=== PATIENT | female | born 1935 | race Hispanic/Latino ===

== ENCOUNTER 2017-11-04 17:41 | Emergency (ER) | payer MEDICARE, OTHER | END 2017-11-04 21:00 | disposition left against medical advice (07) | LOC: ED 17:41 | DX: M25.512 Pain in left shoulder (principal); Z53.21 Procedure and treatment not carried out due to patient leaving prior to being seen by health care provider ==

== ENCOUNTER 2017-11-05 09:38 | Outpatient (CLI) | payer MEDICARE, OTHER ==
[2017-11-05 10:35] LABS: Blood Urea Nitrogen 16 mg/dL (7-17)
--- NOTE | 2017-11-05 11:40 | Cat Scan Report ---
CTA CHEST: HISTORY: Chest pain on breathing, pleuritic chest pain. COMPARISON: 02/16/15. TECHNIQUE: Helical CT in 1.25mm intervals following IV contrast. Pulmonary embolus protocol. Sagittal and coronal reformatted images. Rotational MIP images. FINDINGS: Contrast bolus is satisfactory. No pulmonary embolus is identified. Thyroid gland: Normal. Tracheobronchial tree: Normal. Esophagus: The esophagus is within normal limits. A small hiatal hernia is noted. Heart: Normal. Pericardium: Normal. Mediastinum: Mild atherosclerotic calcifications and aortic arch are stable. No dissection or aneurysm. No mediastinal mass or adenopathy. Lung Bassett: Mild linear scarring or atelectasis is identified in the lower lung zones. No evidence for pneumonia, nodule or interstitial disease. Pleural Spaces: Normal. Musculoskeletal: Mild osteopenia is suspected. No fracture or suspicious bony lesion is identified. Chronic sternal deformity/fracture is suspected. IMPRESSION: No evidence for pulmonary embolus. No acute cardiopulmonary process. Mild linear atelectasis or scarring in the lower lung zones. Small hiatal hernia. Osteopenia.
== END 2017-11-05 09:39 | disposition home or self-care (01) ==
LOC: CT 09:38
PROVIDERS: ATTEND Internal Medicine
DX: R07.81 Pleurodynia (principal); R07.1 Chest pain on breathing; K44.9 Diaphragmatic hernia without obstruction or gangrene; I70.0 Atherosclerosis of aorta; M85.88 Other specified disorders of bone density and structure, other site
CPT/HCPCS: 36415; 71275; 82565; 84520; Q9967

== ENCOUNTER 2017-11-21 17:02 | Emergency (ER) | payer MEDICARE, OTHER ==
[2017-11-21] MEDS ORDERED: ZOFRAN ODT ONE (19:02)
[2017-11-21 19:28] LABS: Hematocrit 47.8 % (30.3-42.9); Mean Corpuscular HGB Conc 34 % (30-34); Mean Corpuscular Hemoglobin 31 pg (28-32); Mean Corpuscular Volume 92 fl (79-97); Platelet Count 299 K/mm3 (140-440); Red Blood Count 5.17 M/mm3 (3.65-5.03); Red Cell Distribution Width 13.5 % (13.2-15.2)
[2017-11-21 19:48] LABS: Alanine Aminotransferase 29 units/L (7-56); Albumin 4.2 g/dL (3.9-5); BUN/Creatinine Ratio 16; Blood Urea Nitrogen 13 mg/dL (7-17); Calcium 9.7 mg/dL (8.4-10.2); Hemolysis Index 7
[2017-11-21] MEDS ORDERED: ZOFRAN ODT PO ONE (19:52)
[2017-11-21 20:08] LABS: Basophils % (Manual) 0 % (0.0-1.8); Eosinophils % (Manual) 0 % (0.0-4.3); Total Cells Counted 100
[2017-11-21 20:09] LABS: Anisocytosis 1+
[2017-11-21] MEDS ORDERED: PEPCID IV ONE (22:12)
[2017-11-21] MEDS ORDERED: REGLAN IV ONE (22:12)
[2017-11-21] MEDS ORDERED: NACL 0.9% 500 ML 500 ML IV ONE (22:12)
--- NOTE | 2017-11-21 22:16 | Emergency Department Report ---
HPI - General Chief Complaint: Nausea/Vomiting/Diarrhea Time Seen by Provider: 11/21/17 21:52 - HPI HPI: 82-year-old female presents to the emergency department from home with complaint of a 2 to three-day history of some nausea and vomiting. It is gotten to the point where she only has dry heaving and this has caused some epigastric discomfort. The patient has a history of GERD for which she follows up with Dr. bedoya, gastroenterology. She says that a week ago she was taken off Actifed and instead told to take a "drink", some type of a reflux solution. However she has been unable to tolerate that and was told to take some Tums instead. 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 Because of all the nausea and vomiting, the patient says that she feels slightly weak and/or dizzy. She denies any shortness of breath, chest pain, diarrhea, dysuria, fever. No recent travel or sick contacts at home. She has a past medical history of acid reflux, hyperlipidemia and a surgical history of cholecystectomy. She just switched to a new primary care physician. ED Past Medical Hx - Past Medical History Hx Hypertension: Yes (elevated cholesterol) Hx GERD: Yes Hx Liver Disease: (acute cholecystitis) - Surgical History Hx Cholecystectomy: Yes (NOVEMBER 2014) - Social History Smoking Status: Never Smoker Substance Use Type: None - Medications Home Medications: Home Medications Medication Instructions Recorded Confirmed Last Taken Type Fosinopril Sodium 20 mg PO DAILY 11/24/14 02/15/15 02/15/15 History Hydrochlorothiazide 25 mg PO DAILY 11/24/14 02/15/15 02/15/15 History Potassium Chloride [Klor-Con 8] 8 meq PO DAILY 11/24/14 02/15/15 02/14/15 History Metoprolol [Lopressor TAB] 50 mg PO BID #60 tablet 12/03/14 02/15/15 02/15/15 Rx amLODIPine [Norvasc] 10 mg PO QDAY #30 tablet 12/03/14 02/15/15 02/15/15 Rx hydrALAZINE [Apresoline TAB] 75 mg PO Q8HR #90 tablet 12/03/14 02/15/15 Rx Allopurinol [Zyloprim] 100 mg PO QDAY 02/15/15 02/15/15 02/14/15 History AtorvaSTATin [Lipitor] 20 mg PO DAILY 02/15/15 02/15/15 02/14/15 History Calcium Carb,Gluc/Mag Ox,Gluc 1 each PO DAILY 02/15/15 02/15/15 02/14/15 History [Calcium Magnesium Caplet] Centrum Silver Women Tablet 1 mg PO DAILY 02/15/15 02/15/15 02/14/15 History Vit C/E/Zn/Coppr/Lutein/Zeaxan 1 each PO DAILY 02/15/15 02/15/15 02/14/15 History [Ocuvite Lutein & Zeaxanthin Cp] cloNIDine [Catapres] 0.2 mg PO QHS 02/15/15 02/15/15 02/14/15 History oxyCODONE /ACETAMINOPHEN [Percocet 1 tab PO Q6HR PRN #14 tablet 02/21/15 Unknown Rx 5/325] Metoclopramide HCl [Reglan TAB] 5 mg PO Q8H PRN #12 tablet 11/22/17 Unknown Rx ED Review of Systems ROS: Stated complaint: N/V Other details as noted in HPI Comment: All other systems reviewed and negative Constitutional: denies: chills, fever Eyes: denies: eye pain, eye discharge, vision change ENT: denies: ear pain, throat pain Respiratory: denies: cough, shortness of breath, wheezing Cardiovascular: denies: chest pain, palpitations Gastrointestinal: abdominal pain, nausea, vomiting Genitourinary: denies: urgency, dysuria, discharge Musculoskeletal: denies: back pain, joint swelling, arthralgia Skin: denies: rash, lesions Neurological: denies: headache, weakness, paresthesias Physical Exam - Physical Exam Vital Signs: Vital Signs 11/21/17 18:54 Temperature 97.7 F Pulse Rate 104 H Respiratory 18 Rate Blood Pressure 145/95 O2 Sat by Pulse 97 Oximetry Physical Exam: GENERAL: The patient is well-developed well-nourished. HENT: Normocephalic. Atraumatic. Patient has moist mucous membranes. EYES: Extraocular motions are intact. Pupils equal reactive to light bilaterally. NECK: Supple. Trachea is midline. CHEST/LUNGS: Clear to auscultation. There is no respiratory distress noted. HEART/CARDIOVASCULAR: Regular. There is no tachycardia. There is no murmur. ABDOMEN: Abdomen is soft. There is some mild epigastric tenderness to palpation. No guarding or rebound tenderness. Patient has normal bowel sounds. There is no abdominal distention. SKIN: Skin is warm and dry. NEURO: The patient is awake, alert, and oriented. The patient is cooperative. The patient has no focal neurologic deficits. The patient has normal speech. Cranial nerves II through XII grossly intact. MUSCULOSKELETAL: There is no tenderness or deformity. There is no limitation range of motion. There is no evidence of acute injury. ED Course Vital Signs 11/21/17 18:54 Temperature 97.7 F Pulse Rate 104 H Respiratory 18 Rate Blood Pressure 145/95 O2 Sat by Pulse 97 Oximetry ED Medical Decision Making - Lab Data Result diagrams: 11/21/17 19:05 11/21/17 19:05 - EKG Data EKG shows normal: sinus rhythm, axis (left axis deviation), intervals, QRS complexes (Q waves to the inferior leads), ST-T waves Rate: normal - EKG Data When compared to previous EKG there are: no significant change Interpretation: unchanged when compared t (02/16/2015) - Radiology Data Radiology results: image reviewed interpreted by me: Abdominal x-ray shows nonspecific nonobstructive bowel gas. - Medical Decision Making Patient comes in with a 2 to three-day history of some nausea and vomiting and now has some epigastric discomfort, most likely secondary to the nausea and vomiting. The patient's labs are mostly unremarkable except for some hypokalemia with potassium of 3.2. She has a history of hypokalemia and takes potassium supplements. There is a mild leukocytosis of 14,000 but no source of infection is been found and may be reactive to the patient's vomiting. Abdominal x-ray shows nonspecific nonobstructive bowel gas. An IV was placed and the patient was given some Reglan for nausea, Pepcid for possible acid reflux exacerbation, and a 500 mL bolus of IV fluid resuscitation. Upon reevaluation after these medications, the patient says she is feeling much better. She says she no longer has any nausea, abdominal pain and there has been no further vomiting. Since the abdominal x-ray did not show any acute process and the patient is currently pain-free, I did not feel that the patient required any further CT imaging of her abdomen and pelvis. She was given some potassium chloride to replace her potassium. She was given a dose of labetalol for her blood pressure which brought it down to a more reasonable level. The patient had some transient elevated blood pressure after she was given IV fluid resuscitation and secondary to the fact that she did not take her blood pressure medications today. I do not know the patient's symptoms are truly secondary to her issues with acid reflux but she has good follow-up with Dr. bedoya. She will increase her oral rehydration at home and will return to the ER with any worsening of her symptoms in any acute distress. Patient was seen in during the emergency department and appeared stable while doing so. EKG did not show any signs of any OR or dysrhythmia. - Differential Diagnosis GERD, gastritis, viral syndrome, food poisoning Critical Care Time: No Critical care attestation.: If time is entered above; I have spent that time in minutes in the direct care of this critically ill patient, excluding procedure time. ED Disposition Clinical Impression: Hypokalemia Nausea & vomiting Qualifiers: Vomiting type: unspecified Vomiting Intractability: non-intractable Qualified Code(s): R11.2 - Nausea with vomiting, unspecified Disposition: DC-01 TO HOME OR SELFCARE Is pt being admited?: No Condition: Stable Instructions: Hypokalemia (ED), Acute Nausea and Vomiting (ED) Additional Instructions: Please follow-up with your primary care physician in the next few days. I also recommend that you follow-up with Dr. bedoya. Take your blood pressure medication and potassium supplements as previously prescribed. Return to the emergency department with any return of your symptoms or with any acute distress. Increase your oral rehydration. Prescriptions: Metoclopramide HCl [Reglan TAB] 5 mg PO Q8H PRN #12 tablet PRN Reason: Nausea Referrals: MILTON BEDOYA MD [Staff Physician] - 3-5 Days Time of Disposition: 01:33
--- NOTE | 2017-11-21 23:27 | XRay Report ---
FINAL REPORT PROCEDURE: XR ABDOMEN 2V TECHNIQUE: Abdominal series, including supine and upright AP views. HISTORY: abd pain COMPARISON: No prior studies are available for comparison. FINDINGS: Bowel gas pattern:There is paucity of intestinal gas which is predominantly distributed in nondistended colon. Multiple phleboliths are identified.. Masses or calcifications:Multiple phleboliths are identified.. Bony structures:Disc space narrowing is identified at L3-4 and L4-5. There is mild degree levoscoliosis.. Pneumoperitoneum:None . Other:No significant findings . IMPRESSION: Nonspecific intestinal gas pattern..
[2017-11-22] MEDS ORDERED: NORMODYNE IV ONE (01:04)
[2017-11-22 01:09] LABS: Bilirubin,Urine NEG (Negative); Blood,Urine SM (Negative); Color,Urine Amber (Yellow); Hyaline Casts,Urine 49 /LPF; Mucus,Urine 1+ /HPF; Urobilinogen,Urine < 2.0 mg/dL (<2.0)
[2017-11-22] MEDS ORDERED: K-DUR PO ONE (01:11)
[2017-11-22 01:42] VITALS: BP 158/71
== END 2017-11-22 01:50 | disposition home or self-care (01) ==
LOC: ED 17:02
DX: E87.6 Hypokalemia (principal); R11.2 Nausea with vomiting, unspecified; I10 Essential (primary) hypertension; K21.9 Gastro-esophageal reflux disease without esophagitis
CPT/HCPCS: 36415; 74019; 80053; 81001; 84443; 84484; 85007; 85025; 93005; 93010; 96374; 96375; 99284; J2765; J7040; Q0162

== ENCOUNTER 2019-03-30 19:58 | Emergency (ER) | payer MEDICARE, OTHER ==
--- NOTE | 2019-03-30 21:46 | Event Note ---
ED Screening Note ED Screening Note: pt states that she had a fall in her du garden stepped over the cobblestone and lost her balance states she hit the back of her head c/o left shoulder pain denies any NOYOLA no LOC states she had some dizziness after her fall no N/V no vision changes states her only blood thinner is a low dose aspirin daily PMHx HTN, GERD, Arthritis PSHx cholecystectomy This initial assessment/diagnostic orders/clinical plan/treatment(s) is/are subject to change based on patients health status, clinical progression and re- assessment by fellow clinical providers in the ED. Further treatment and workup at subsequent clinical providers discretion. Patient/guardian urged not to elope from the ED as their condition may be serious if not clinically assessed and managed. Initial orders include: labs, EKG, left shoulder XR CT head ordered by egg grader
--- NOTE | 2019-03-30 22:00 | Cat Scan Report ---
CT HEAD WITHOUT CONTRAST INDICATION / CLINICAL INFORMATION: Trauma. Patient fell sustaining head injury. Patient reports dizziness. TECHNIQUE: All CT scans at this location are performed using CT dose reduction for ALARA by means of automated e xposure control. COMPARISON: None available. FINDINGS: HEMORRHAGE: No evidence of intracranial hemorrhage or extra-axial fluid collection. EXTRA-AXIAL SPACES: Cortical sulci and sylvian fissures are enlarged reflecting a degree of parenchym al volume loss which is within normal limits for the patient's age. Basilar cisterns have an unremark able appearance. VENTRICULAR SYSTEM: The third and lateral ventricles are enlarged reflecting resonance of age related parenchymal volume loss. CEREBRAL PARENCHYMA: Periventricular and deep white matter lucency is observed. This is probably seco ndary to microvascular ischemic change. There is no indication of recent infarction. No areas of ence phalomalacia are identified. MIDLINE SHIFT OR HERNIATION: There is no mass effect. CEREBELLUM / BRAINSTEM: Brainstem and cerebellum have an unremarkable appearance. INTRACRANIAL VESSELS:Calcified atherosclerotic plaque is present along the course of the cavernous se gments of both internal carotid arteries. Similar findings are seen at the distal vertebral arteries. ORBITS: Status post bilateral cataract surgery. No additional orbital abnormalities are identified. SOFT TISSUES of HEAD: No significant abnormality. CALVARIUM: Evaluation of bone windows reveals no abnormalities. PARANASAL SINUSES / MASTOID AIR CELLS: Mild mucosal disease is present within several mid and anterio r ethmoid air cells bilaterally. Paranasal sinuses are otherwise free from inflammatory mucosal disea se. Mastoid air cells are normally pneumatized. ADDITIONAL FINDINGS: None. IMPRESSION: 1. Age-related involutional changes of parenchymal volume loss and microvascular ischemia. 2. No acute intracranial abnormality. Signer Name: Lewis Greene MD Signed: 03/30/2019 9:55 PM Workstation Name: [id number]
[2019-03-30 22:07] LABS: Hemoglobin 12.4 gm/dl (10.1-14.3); Lymphocytes % (Auto) 16.7 % (13.4-35.0); Mean Corpuscular HGB Conc 35 % (30-34); Mean Corpuscular Volume 92 fl (79-97); Platelet Count 183 K/mm3 (140-440); Red Blood Count 3.81 M/mm3 (3.65-5.03); Red Cell Distribution Width 13.4 % (13.2-15.2)
[2019-03-30 22:08] LABS: Basophils % (Auto) 0.6 % (0.0-1.8); Eosinophils # (Auto) 0.2 K/mm3 (0.0-0.4); Eosinophils % (Auto) 2.3 % (0.0-4.3); Lymphocytes # (Auto) 1.1 K/mm3 (1.2-5.4); Monocytes # (Auto) 0.7 K/mm3 (0.0-0.8); Monocytes % (Auto) 9.9 % (0.0-7.3)
[2019-03-30 22:18] LABS: Calcium 9.2 mg/dL (8.4-10.2)
--- NOTE | 2019-03-30 22:25 | Emergency Department Report ---
ED Fall HPI - General Chief Complaint: Fall Stated Complaint: FALL/HEAD INJURY Time Seen by Provider: 03/30/19 21:42 Source: patient Mode of arrival: Ambulatory - History of Present Illness Initial Comments: Patient is an 83-year-old female that presents emergency room with complaints of headache and head injury after a fall. Patient states she was walking in her yard when she tripped and hit her head on the concrete. Patient states she had the back of her head. Patient denies loss of blood. Patient denies loss of consciousness. Patient states the headache is a 6 out of 10. Patient states the pain is better with rest and worse with movement. Patient denies neck pain. Patient states she is having left shoulder pain. Patient states she also hit her shoulder. Patient states the shoulder pain is a 5 out of 10. Patient states the pain is better with rest and worse with movement of the shoulder. 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 denies: neck pain, numbness, weakness, chest paint, shortness of breath, abdominal pain, hematuria, unable to walk, lightheaded, vertigo, confusion - Related Data Home Medications Medication Instructions Recorded Confirmed Last Taken Fosinopril Sodium 20 mg PO DAILY 11/24/14 02/15/15 02/15/15 Potassium Chloride [Klor-Con 8] 8 meq PO DAILY 11/24/14 02/15/15 02/14/15 hydroCHLOROthiazide 25 mg PO DAILY 11/24/14 02/15/15 02/15/15 [Hydrochlorothiazide] Allopurinol [Zyloprim] 100 mg PO QDAY 02/15/15 02/15/15 02/14/15 AtorvaSTATin [Lipitor] 20 mg PO DAILY 02/15/15 02/15/15 02/14/15 Calcium Carb,Gluc/Mag Ox,Gluc 1 each PO DAILY 02/15/15 02/15/15 02/14/15 [Calcium Magnesium Caplet] Centrum Silver Women Tablet 1 mg PO DAILY 02/15/15 02/15/1515 Vit C/E/Zn/Coppr/Lutein/Zeaxan 1 each PO DAILY 02/15/15 02/15/15 02/14/15 [Ocuvite Lutein-Zeaxanthin Cap] cloNIDine [Catapres] 0.2 mg PO QHS 02/15/15 02/15/15 02/14/15 Previous Rx's Medication Instructions Recorded Last Taken Type Metoprolol [Lopressor TAB] 50 mg PO BID #60 tablet 12/03/14 02/15/15 Rx amLODIPine [Norvasc] 10 mg PO QDAY #30 tablet 12/03/14 02/15/15 Rx hydrALAZINE [Apresoline TAB] 75 mg PO Q8HR #90 tablet 12/03/14 02/15/15 Rx oxyCODONE /ACETAMINOPHEN [Percocet 1 tab PO Q6HR PRN #14 tablet 02/21/15 Unknown Rx 5/325] Metoclopramide HCl [Reglan TAB] 5 mg PO Q8H PRN #12 tablet 11/22/17 Unknown Rx Allergies Allergy/AdvReac Type Severity Reaction Status Date / Time erythromycin base Allergy Unknown Verified 11/24/14 01:17 [From E-Mycin] levofloxacin Allergy Unknown Verified 11/24/14 01:17 ondansetron Allergy Unknown Verified 11/21/17 22:11 [From Zofran (as hydrochloride)] ED Review of Systems ROS: Stated complaint: FALL/HEAD INJURY Other details as noted in HPI Constitutional: denies: chills, fever Eyes: denies: eye pain, eye discharge, vision change ENT: denies: ear pain, throat pain Respiratory: denies: cough, shortness of breath, wheezing Cardiovascular: denies: chest pain, palpitations Endocrine: no symptoms reported Gastrointestinal: denies: abdominal pain, nausea, diarrhea Genitourinary: denies: urgency, dysuria, discharge Musculoskeletal: denies: back pain, joint swelling, arthralgia Skin: denies: rash, lesions Neurological: headache. denies: weakness, paresthesias Psychiatric: denies: anxiety, depression Hematological/Lymphatic: denies: easy bleeding, easy bruising ED Past Medical Hx - Past Medical History Previous Medical History?: Yes Hx Hypertension: Yes (elevated cholesterol) Hx CVA: No Hx Heart Attack/AMI: No Hx Congestive Heart Failure: No Hx Diabetes: No Hx Deep Vein Thrombosis: No Hx Pulmonary Embolism: No Hx GERD: Yes Hx Liver Disease: No (acute cholecystitis) Hx Renal Disease: No Hx of Cancer: No Hx Sickle Cell Disease: No Hx Arthritis: Yes Hx Headaches / Migraines: No Hx Seizures: No Hx Kidney Stones: No Hx Psychiatric Treatment: No Hx Asthma: No Hx COPD: No Hx Tuberculosis: No Hx Dementia: No Hx HIV: No - Surgical History Past Surgical History?: Yes Hx Coronary Stent: No Hx Open Heart Surgery: No Hx Pacemaker: No Hx Internal Defibrillator: No Hx Cholecystectomy: Yes (NOVEMBER 2014) Hx Appendectomy: No Hx Breast Surgery: No - Social History Smoking Status: Never Smoker Substance Use Type: None - Medications Home Medications: Home Medications Medication Instructions Recorded Confirmed Last Taken Type Fosinopril Sodium 20 mg PO DAILY 11/24/14 02/15/15 02/15/15 History Potassium Chloride [Klor-Con 8] 8 meq PO DAILY 11/24/14 02/15/15 02/14/15 History hydroCHLOROthiazide 25 mg PO DAILY 11/24/14 02/15/15 02/15/15 History [Hydrochlorothiazide] Metoprolol [Lopressor TAB] 50 mg PO BID #60 tablet 12/03/14 02/15/15 02/15/15 Rx amLODIPine [Norvasc] 10 mg PO QDAY #30 tablet 12/03/14 02/15/15 02/15/15 Rx hydrALAZINE [Apresoline TAB] 75 mg PO Q8HR #90 tablet 12/03/14 02/15/15 02/15/15 Rx Allopurinol [Zyloprim] 100 mg PO QDAY 02/15/15 02/15/15 02/14/15 History AtorvaSTATin [Lipitor] 20 mg PO DAILY 02/15/15 02/15/15 02/14/15 History Calcium Carb,Gluc/Mag Ox,Gluc 1 each PO DAILY 02/15/15 02/15/15 02/14/15 History [Calcium Magnesium Caplet] Centrum Silver Women Tablet 1 mg PO DAILY 02/15/15 02/15/15 02/14/15 History Vit C/E/Zn/Coppr/Lutein/Zeaxan 1 each PO DAILY 02/15/15 02/15/15 02/14/15 History [Ocuvite Lutein-Zeaxanthin Cap] cloNIDine [Catapres] 0.2 mg PO QHS 02/15/15 02/15/15 02/14/15 History oxyCODONE /ACETAMINOPHEN [Percocet 1 tab PO Q6HR PRN #14 tablet 02/21/15 Unknown Rx 5/325] Metoclopramide HCl [Reglan TAB] 5 mg PO Q8H PRN #12 tablet 11/22/17 Unknown Rx ED Physical Exam - General Limitations: No Limitations General appearance: alert, in no apparent distress - Head Head exam: Present: atraumatic, normocephalic - Eye Eye exam: Present: normal appearance, PERRL Pupils: Present: normal accommodation - ENT ENT exam: Present: mucous membranes moist - Neck Neck exam: Present: normal inspection, full ROM. Absent: tenderness - Respiratory Respiratory exam: Present: normal lung sounds bilaterally. Absent: respiratory distress - Cardiovascular Cardiovascular Exam: Present: regular rate, normal rhythm. Absent: systolic murmur, diastolic murmur, rubs, gallop - GI/Abdominal GI/Abdominal exam: Present: soft, normal bowel sounds. Absent: distended, tenderness, guarding, rebound - Rectal Rectal exam: Present: deferred - Extremities Exam Extremities exam: Present: normal inspection - Back Exam Back exam: Present: normal inspection - Neurological Exam Neurological exam: Present: alert, oriented X3, CN II-XII intact, normal gait. Absent: motor sensory deficit - Psychiatric Psychiatric exam: Present: normal affect, normal mood - Skin Skin exam: Present: warm, dry, intact, normal color, other (small occipital scalp hematoma noted. No active bleeding.). Absent: rash ED Course Vital Signs 03/30/19 03/30/19 21:42 22:51 Temperature 97.8 F Pulse Rate 97 H 53 L Respiratory 18 16 Rate Blood Pressure 127/52 Blood Pressure 138/48 [Left] Blood Pressure 127/52 [Right] O2 Sat by Pulse 97 97 Oximetry - Reevaluation(s) Reevaluation #1: Discussed all results with patient. Patient is stable for discharge. Patient will be discharged home. Patient agrees to plan of care. Patient given discharge instructions. Patient voiced understanding of discharge instructions. 03/30/19 22:34 ED Medical Decision Making - Lab Data Result diagrams: 03/30/19 21:50 07/11/19 21:50 - EKG Data -: EKG Interpreted by [facility] EKG shows normal: sinus rhythm, axis, intervals, QRS complexes, ST-T waves Rate: bradycardia - Radiology Data CT HEAD WITHOUT CONTRAST INDICATION / CLINICAL INFORMATION: Trauma. Patient fell sustaining head injury. Patient reports dizziness. TECHNIQUE: All CT scans at this location are performed using CT dose reduction for ALARA by means of automated exposure control. COMPARISON: None available. FINDINGS: HEMORRHAGE: No evidence of intracranial hemorrhage or extra-axial fluid collection. EXTRA-AXIAL SPACES: Cortical sulci and sylvian fissures are enlarged reflecting a degree of parenchymal volume loss which is within normal limits for the patient's age. Basilar cisterns have an unremarkable appearance. VENTRICULAR SYSTEM: The third and lateral ventricles are enlarged reflecting resonance of age related parenchymal volume loss. CEREBRAL PARENCHYMA: Periventricular and deep white matter lucency is observed. This is probably secondary to microvascular ischemic change. There is no indication of recent infarction. No areas of encephalomalacia are identified. MIDLINE SHIFT OR HERNIATION: There is no mass effect. CEREBELLUM / BRAINSTEM: Brainstem and cerebellum have an unremarkable appearance. INTRACRANIAL VESSELS:Calcified atherosclerotic plaque is present along the course of the cavernous segments of both internal carotid arteries. Similar findings are seen at the distal vertebral arteries. ORBITS: Status post bilateral cataract surgery. No additional orbital abnormalities are identified. SOFT TISSUES of HEAD: No significant abnormality. CALVARIUM: Evaluation of bone windows reveals no abnormalities. PARANASAL SINUSES / MASTOID AIR CELLS: Mild mucosal disease is present within several mid and anterior ethmoid air cells bilaterally. Paranasal sinuses are otherwise free from inflammatory mucosal disease. Mastoid air cells are normally pneumatized. ADDITIONAL FINDINGS: None. IMPRESSION: 1. Age-related involutional changes of parenchymal volume loss and microvascular ischemia. 2. No acute intracranial abnormality. Left shoulder 2 views INDICATION: Left shoulder pain IMPRESSION: No fracture or subluxation of the left shoulder is identified. - Medical Decision Making Patient is an 83-year-old who presents to emergency room with complaints of head ache and shoulder pain. Patient had a head CT done which was negative. Patient's shoulder is negative. Patient tripped as a result and did not have any dizziness or loss of consciousness. Patient denies any active bleeding. Patient's CT head negative. Patient's labs unremarkable. Patient is stable for discharge. Patient discharged home. - Differential Diagnosis head injury. Hematoma. Contusion. Shoulder pain. Critical care attestation.: If time is entered above; I have spent that time in minutes in the direct care of this critically ill patient, excluding procedure time. ED Disposition Clinical Impression: Headache Qualifiers: Headache type: post-traumatic Headache chronicity pattern: acute headache Intractability: not intractable Qualified Code(s): G44.319 - Acute post- traumatic headache, not intractable Scalp hematoma Qualifiers: Encounter type: initial encounter Qualified Code(s): S00.03XA - Contusion of scalp, initial encounter Head injury Qualifiers: Encounter type: initial encounter Qualified Code(s): S09.90XA - Unspecified injury of head, initial encounter Fall Qualifiers: Encounter type: initial encounter Qualified Code(s): W19.XXXA - Unspecified fall, initial encounter Shoulder pain, left Qualifiers: Chronicity: acute Qualified Code(s): M25.512 - Pain in left shoulder Shoulder contusion Qualifiers: Encounter type: initial encounter Laterality: left Qualified Code(s): S40.012A - Contusion of left shoulder, initial encounter Disposition: TO HOME OR SELFCARE Is pt being admited?: No Does the pt Need Aspirin: No Condition: Stable Instructions: Fall Prevention for Older Adults (ED), Acute Headache (ED), Shoulder Sprain (ED), Fall Prevention (ED) Additional Instructions: Patient to follow-up with primary care in 2-3 days. Patient to take Tylenol or ibuprofen when necessary for pain. Patient to return to ER if condition worsens. Patient to take meds as directed. Patient to increase water. Patient to rest. Patient to continue all meds. Referrals: PHILL FRANCO MD [Primary Care Provider] - 2-3 Days Time of Disposition: 22:36
--- NOTE | 2019-03-30 22:30 | XRay Report ---
Left shoulder 2 views INDICATION: Left shoulder pain IMPRESSION: No fracture or subluxation of the left shoulder is identified. Signer Name: Иван Austin MD Signed: 03/30/2019 10:25 PM Workstation Name: [id number]
[2019-03-30 22:51] VITALS: BP 138/48
== END 2019-03-30 22:51 | disposition home or self-care (01) ==
LOC: ED 19:58
DX: S00.03XA Contusion of scalp, initial encounter (principal); S40.012A Contusion of left shoulder, initial encounter; S09.90XA Unspecified injury of head, initial encounter; I10 Essential (primary) hypertension; K21.9 Gastro-esophageal reflux disease without esophagitis; M19.90 Unspecified osteoarthritis, unspecified site; Z90.49 Acquired absence of other specified parts of digestive tract; Z88.1 Allergy status to other antibiotic agents; Z88.8 Allergy status to other drugs, medicaments and biological substances; W01.0XXA Fall on same level from slipping, tripping and stumbling without subsequent striking against object, initial encounter; Y93.89 Activity, other specified; Y92.89 Other specified places as the place of occurrence of the external cause; Y99.8 Other external cause status
CPT/HCPCS: 36415; 70450; 80048; 85025; 93005; 93010